=== PATIENT | female | born 1975 | race Caucasian/White ===

== ENCOUNTER 2018-01-12 08:29 | Outpatient (CLI) | payer BC ==
--- NOTE | 2018-01-12 16:55 | MMO ---
BILATERAL SCREENING MAMMOGRAMS: DATE: 01/12/18 No prior comparisons. Baseline exam. This patient's mammogram was interpreted with the assistance of computer-aided detection. FINDINGS: There is heterogeneously dense breast parenchyma bilaterally, which limits the sensitivity of mammogr aphy and could obscure underlying pathology. There is no evidence of discrete mass or suspicious clus tering of microcalcification. There are benign-appearing punctate calcification within the breasts bi laterally. IMPRESSION: BIRADS 2: Benign Finding(s) Annual screening mammography is recommended. POS: DARÍO
== END 2018-01-12 08:30 | disposition home or self-care (01) ==
LOC: SCSMAMMO 08:29
PROVIDERS: ATTEND Family Medicine
DX: Z12.31 Encounter for screening mammogram for malignant neoplasm of breast (principal)
CPT/HCPCS: 77067

== ENCOUNTER 2019-05-18 10:20 | Outpatient (CLI) | payer BC ==
--- NOTE | 2019-05-18 13:57 | ULT ---
HEPATIC ULTRASOUND WITH BUSH SCALE AND COLOR FLOW AND SPECTRAL DOPPLER IMAGING: Date: 05/18/2019 HISTORY: Hepatitis C. FINDINGS: The liver, spleen, pancreas, and gallbladder appear normal. No free fluid is noted. The common duct m easures 3.0 mm in diameter. There is normal flow and spectral waveforms in the hepatic, portal, and splenic vasculature. The sple en measures 10.6 cm in length and the liver measures 13.4 cm in length. IMPRESSION: Normal exam. POS: DARCIE
== END 2019-05-18 10:21 | disposition home or self-care (01) ==
LOC: SCSULT 10:20
PROVIDERS: ATTEND Internal Medicine Gastroenterology
DX: B18.2 Chronic viral hepatitis C (principal)
CPT/HCPCS: 76705

== ENCOUNTER 2024-02-16 08:11 | Outpatient (CLI) | payer BC | END 2024-02-16 08:12 | disposition home or self-care (01) | LOC: BICMAMMO 08:11 | PROVIDERS: ATTEND Family Medicine | DX: N63.24 Unspecified lump in the left breast, lower inner quadrant (principal); N64.4 Mastodynia; Z87.898 Personal history of other specified conditions | CPT/HCPCS: 76642; 77066; G0279 ==